=== PATIENT | female | born 1985 ===

== ENCOUNTER 2018-09-05 17:08 | Emergency (ER) | payer SELFPAY ==
[2018-09-05 17:08] VITALS: BMI 20.7
[2018-09-05 17:24] VITALS: TEMP 98.7
--- NOTE | 2018-09-05 17:32 | C.PDOC ---
History Of Present Illness 33 y/o female presents to the ED complaining of right-sided TMJ pain for 4 days. Patient has history of prior surgery on the joint due to trauma in 2009. States she has had no pain at all until now. Pain is described as localized, and worsens with jaw movement and biting. Patient also notes she grinds her teeth at night. No relief with Advil at home. Otherwise she denies any numbness, tingling, chest pain, or other associated symptoms. Time Seen by Provider: 09/05/18 17:26 Chief Complaint (Nursing): Dental Pain History Per: Patient History/Exam Limitations: no limitations Onset/Duration Of Symptoms: Days (4) Current Symptoms Are (Timing): Still Present Past Medical History Reviewed: Historical Data, Nursing Documentation, Vital Signs Vital Signs: Last Vital Signs Temp 98.7 F 09/05/18 17:18 Pulse 60 09/05/18 17:18 Resp 20 09/05/18 17:18 BP 158/84 H 09/05/18 17:18 Pulse Ox 100 09/05/18 17:18 - Medical History PMH: Denies: Depression Other Surgeries: Jaw surgery - [facility] Procedures CLOSURE SKIN & SUBCUTANEOUS NEC (04/30/13) Family History: States: No Known Family Hx - Social History Hx Alcohol Use: Yes Hx Substance Use: Yes - Immunization History Hx Tetanus Toxoid Vaccination: No Hx Influenza Vaccination: No Hx Pneumococcal Vaccination: No Review Of Systems Except As Marked, All Systems Reviewed And Found Negative. Constitutional: Negative for: Fever, Chills ENT: Positive for: Other (right-sided TMJ pain) Cardiovascular: Negative for: Chest Pain Respiratory: Negative for: Shortness of Breath Neurological: Negative for: Weakness, Numbness Physical Exam - Physical Exam Appears: Non-toxic, No Acute Distress Skin: Normal Color, Warm, Dry Head: Atraumatic, Normacephalic, Other (Clicking over the right TMJ joint) Eye(s): bilateral: Normal Inspection, PERRL, EOMI Oral Mucosa: Moist Teeth: Normal Dentition, No Tender To Palpation, No Loose Gingiva: Normal Appearing, No Swelling, No Abscess Neck: Normal ROM, Supple Chest: Symmetrical Respiratory: No Accessory Muscle Use, Other (NARD) Extremity: Bilateral: Atraumatic, Normal Color And Temperature, Normal ROM Neurological/Psych: Oriented x3, Normal Speech, Normal Cranial Nerves ED Course And Treatment O2 Sat by Pulse Oximetry: 100 (RA) Pulse Ox Interpretation: Normal Medical Decision Making Medical Decision Making: Plan: Patient will be discharged home with RX for Tylenol #3 for pain control. Advised to get a temporary mouth guard, discussed the importance of dental follow-up. Disposition Counseled Patient/Family Regarding: Diagnosis, Need For Followup, Rx Given - Disposition Referrals: your,dentist [Other] Disposition: HOME/ ROUTINE Disposition Time: 17:31 Condition: GOOD Prescriptions: Acetaminophen/Codeine [Tylenol/Codeine 300 MG/30 MG] 2 tab PO Q6H #20 tab Instructions: Temporomandibular Joint (TMJ) Disorders (DC) Forms: [employer] (Albanian) - POA Present On Arrival: None - Clinical Impression Clinical Impression: TMJ pain dysfunction syndrome - Scribe Statement The provider has reviewed the documentation as recorded by the Scribe (Charlee singh) Provider Attestation: All medical record entries made by the Scribe were at my direction and personally dictated by me. I have reviewed the chart and agree that the record accurately reflects my personal performance of the history, physical exam, medical decision making, and the department course for this patient. I have also personally directed, reviewed, and agree with the discharge instructions and disposition.
[2018-09-05 17:42] VITALS: BP 110/65; PULSE 62; RESP 18
[2018-09-05 17:43] VITALS: O2SAT 100
== END 2018-09-05 17:41 | disposition home or self-care (01) ==
LOC: C.ER 17:08
DX: M26.621 Arthralgia of right temporomandibular joint (principal)